=== PATIENT | female | born 1980 | race Caucasian/White ===

== ENCOUNTER → 2017-09-10 | Outpatient (CLI) | payer BC ==
--- NOTE | 2017-09-10 19:08 | Diagnostic Imaging Report ---
PROCEDURE: CT sinuses without contrast TECHNIQUE: Multiple contiguous axial images were obtained through the sinuses without the use of intravenous contrast. Coronal and sagittal reformations were then performed. INDICATION: Chronic sinusitis. FINDINGS: There is mucosal thickening seen in the posterior right ethmoidal air cells. The rest of the ethmoidal air cells appears clear. The ostiomeatal complexes are patent. There is, however, minimal mucosal thickening posterior to the ostiomeatal complex on the left side along the upper medial maxillary sinus wall. The right maxillary sinus is clear. The frontal sinuses are clear. The sphenoidal sinuses are also clear. The mastoid air cells and middle ear cavities are clear. There is nasal septal deviation to the right side. There is minimal mucosal thickening along the inferior turbinates. IMPRESSION: There is mild mucosal thickening along the posterior right ethmoidal air cells and upper medial wall of the left maxillary sinus. Dictated by: Dictated on workstation # [id number]
== END ==
LOC: RAD 09:09
PROVIDERS: ATTEND Otolaryngology Otolaryngology/Facial Plastic Surgery
DX: J32.9 Chronic sinusitis, unspecified (principal)
CPT/HCPCS: 70486

== ENCOUNTER → 2018-04-03 | Outpatient (CLI) | payer OTHER ==
[2018-04-03 08:52] LABS: HEMOGLOBIN 13.9 G/DL (11.5-16.0); RED BLOOD COUNT 4.97 10^6/uL (4.35-5.85); RED CELL DISTRIBUTION WIDTH 14.5 % (10.0-14.5); WHITE BLOOD COUNT 7.6 10^3/uL (4.3-11.0)
[2018-04-03 09:07] LABS: ALANINE AMINOTRANSFERASE 17 U/L (0-55); ALBUMIN 4.1 GM/DL (3.2-4.5); ALKALINE PHOSPHATASE 74 U/L (40-136); BILIRUBIN,TOTAL 0.6 MG/DL (0.1-1.0); BUN/CREATININE RATIO 15; CALCIUM 9.4 MG/DL (8.5-10.1); CARBON DIOXIDE 31 MMOL/L (21-32); CHLORIDE 105 MMOL/L (98-107); CHOLESTEROL 148 MG/DL (< 200); CREATININE SERUM 0.78 MG/DL (0.60-1.30); GFR ESTIMATED > 60; GLUCOSE 105 MG/DL (70-105); HDL CHOLESTEROL 40 MG/DL (40-60); POTASSIUM 2.9 MMOL/L (3.6-5.0); SODIUM 142 MMOL/L (135-145); TOTAL PROTEIN 7.3 GM/DL (6.4-8.2); TRIGLYCERIDES 72 MG/DL (<150); VLDL CHOLESTEROL 14 MG/DL (5-40)
[2018-04-03 09:16] LABS: BILIRUBIN,URINE NEGATIVE (NEGATIVE); CLARITY,URINE CLEAR; COLOR,URINE YELLOW; GLUCOSE, URINE (UA) NEGATIVE (NEGATIVE); KETONES,URINE NEGATIVE (NEGATIVE); LEUKOCYTE ESTERASE ,URINE NEGATIVE (NEGATIVE); NITRITE,URINE NEGATIVE (NEGATIVE); PH,URINE 6 (5-9); PROTEIN,URINE 1+ (NEGATIVE); UROBILINOGEN,URINE NORMAL (NORMAL)
[2018-04-03 09:26] LABS: BACTERIA,URINE NEGATIVE /HPF
== END ==
LOC: LAB 08:19
PROVIDERS: ATTEND Family Medicine
DX: Z00.00 Encounter for general adult medical examination without abnormal findings (principal)
CPT/HCPCS: 36415; 80053; 80061; 81000; 84443; 85027

== ENCOUNTER 2018-10-28 14:26 | Outpatient (CLI) | payer OTHER ==
[~2018-10-28] VITALS: Ht 165.1 cm; Wt 103.9 kg
[2018-10-28] MEDS ORDERED: CETI10TA17 PO (14:48)
[2018-10-28] MEDS ORDERED: LOSA100T8 PO (14:48)
[2018-10-28] MEDS ORDERED: FLUT9.9S NS (14:48)
[2018-10-28 14:50] VITALS: BP 146/104
[2018-10-28 15:26] LABS: BASOPHILS % (AUTO) 0 % (0-10); EOSINOPHILS # (AUTO) 0.2 10^3/uL (0.0-0.3); EOSINOPHILS % (AUTO) 2 % (0-10); HEMATOCRIT 44 % (35-52); HEMOGLOBIN 13.8 G/DL (11.5-16.0); LYMPHOCYTES # (AUTO) 2.4 X 10^3 (1.0-4.0); LYMPHOCYTES % (AUTO) 24 % (12-44); MEAN CORPUSCULAR HEMOGLOBIN 28 PG (25-34); MEAN CORPUSCULAR HGB CONC 31 G/DL (32-36); MEAN CORPUSCULAR VOLUME 88 FL (80-99); MEAN PLATELET VOLUME 10.1 FL (7.4-10.4); MONOCYTES # (AUTO) 0.9 X 10^3 (0.0-1.0); MONOCYTES % (AUTO) 9 % (0-12); NEUTROPHILS # (AUTO) 6.6 X 10^3 (1.8-7.8); NEUTROPHILS % (AUTO) 65 % (42-75); PLATELET COUNT 337 10^3/uL (130-400); RED CELL DISTRIBUTION WIDTH 14.2 % (10.0-14.5); WHITE BLOOD COUNT 10.1 10^3/uL (4.3-11.0)
== END 2018-10-28 15:00 | disposition home or self-care (01) ==
LOC: PREOP 14:26
PROVIDERS: ATTEND Obstetrics & Gynecology
DX: Z01.812 Encounter for preprocedural laboratory examination (principal); Z11.2 Encounter for screening for other bacterial diseases; N93.8 Other specified abnormal uterine and vaginal bleeding; R10.2 Pelvic and perineal pain; D64.9 Anemia, unspecified
CPT/HCPCS: 36415; 85025; 86850; 86900; 86901; 87081

== ENCOUNTER 2018-11-05 09:55 | Day surgery (SDC) | payer OTHER ==
[~2018-11-05] VITALS: Ht 165.1 cm; Wt 103.9 kg
[~2018-11-05 09:55] MED LIST: CETI10TA17 PO; FLUT9.9S NS; LOSA100T8 PO
--- OUTSIDE RECORDS SUMMARY | 2018-11-05 10:19 | XMS REPORT ---
Author Author SUDEEP HENNING Organization [employer] Address Unknown Phone Unavailable Care Team Providers Care Family Psychologist Name Role Phone SUDEEP HENNING CP Unavailable Allergies, Adverse Reactions, Alerts Substance Reaction Event Type Levsin Info Not Available Drug Allergy Penicillins Info Not Available Non Drug Allergy Sulfa (sulfonamide Antibiotics) Info Not Available Non Drug Allergy Problems Problem Type Condition Code Onset Dates Condition Status Problem Routine general medical examination at health care facility V70.0 Active Problem Cough 786.2 Active Problem Acute pharyngitis 462 Active Problem Pain in soft tissues of limb 729.5 Active Problem Diarrhea 787.91 Active Problem Essential hypertension, benign 401.1 Active Problem Unspecified essential hypertension 401.9 Active Problem Plantar fascial fibromatosis 728.71 Active Problem Nausea alone 787.02 Active Problem Ingrowing nail 703.0 Active Assessment Dental examination Z01.20 Active Problem Elevated blood pressure reading without diagnosis of hypertension 796.2 Active Problem Allergic rhinitis due to pollen 477.0 Active Medications Medication Code System Code Instructions Start Date End Date Status Dosage Nasacort Allergy 24HR [facility] [address] not defined Lisinopril [facility] [address]-67 20 mg Jul 03, 2014 take 1 tablet by Oral route 1 time per day Take in am Maria Elena ND 0 not defined Clindamycin HCl [facility] [address]-44 150 MG Orally every 6 hrs June 03, 2016 June 08, 2016 1 capsule Procedures Procedure Coding System Code Date INTRAORL-PERIAPICAL 1 FILM 55177 CPT-4 D0220 June 03, 2016 LTD ORAL EVALUATION - PROBLEM FOCUS CPT-4 D0140 June 03, 2016 Vital Signs Date/Time: June 03, 2016 Blood Pressure Diastolic 109 mmHg Blood Pressure Systolic 162 mmHg Height 65 in Results No Known Results Summary Purpose eClinicalWorks Submission
--- OUTSIDE RECORDS SUMMARY | 2018-11-05 10:19 | XMS REPORT | Continuity of Care Document ---
Author Author [facility] Address Unknown Phone Unavailable Allergies Active Description Code Type Severity Reaction Onset Reported/Identified Relationship to Patient Clinical Status Yes Levsin Drug Allergy N/A N/A 04/27/2014 Yes Penicillins Drug Allergy N/A N/A 04/27/2014 Yes Sulfa (Sulfonamide Antibiotics) Drug Allergy N/A N/A 04/27/2014 Yes hyoscyamine [id number] Drug Allergy Mild RASH 10/28/2018 Yes Penicillins [id number] Drug Allergy Mild RASH 10/28/2018 Yes Sulfa (Sulfonamide Antibiotics) [id number] Drug Allergy Mild RASH 2017 Medications There is no data. Problems Date Dx Coded Attending Type Code Diagnosis Diagnosed By 04/27/2014 DONNA NICOLE DO 796.2 ELEVATED BLOOD PRESSURE READING WITHOUT DIAGNOSIS OF HYPERTENSION 04/27/2014 GUILLERMINA TURCIOS APRN R 796.2 ELEVATED BLOOD PRESSURE READING WITHOUT DIAGNOSIS OF HYPERTENSION 04/27/2014 GUILLERMINA TURCIOS APRN R 796.2 ELEVATED BLOOD PRESSURE READING WITHOUT DIAGNOSIS OF HYPERTENSION 04/27/2014 DONNA NICOLE DO 796.2 ELEVATED BLOOD PRESSURE READING WITHOUT DIAGNOSIS OF HYPERTENSION 04/27/2014 MOHSEN HANSON APRN R 796.2 ELEVATED BLOOD PRESSURE READING WITHOUT DIAGNOSIS OF HYPERTENSION 04/27/2014 SATHISH HUMMEL APRN L 796.2 ELEVATED BLOOD PRESSURE READING WITHOUT DIAGNOSIS OF HYPERTENSION 04/27/2014 SATHISH HUMMEL APRN L 796.2 ELEVATED BLOOD PRESSURE READING WITHOUT DIAGNOSIS OF HYPERTENSION 04/27/2014 DONNA NICOLE DO K 796.2 ELEVATED BLOOD PRESSURE READING WITHOUT DIAGNOSIS OF HYPERTENSION 04/27/2014 RYLEE EPSTEIN APRN S 796.2 ELEVATED BLOOD PRESSURE READING WITHOUT DIAGNOSIS OF HYPERTENSION 04/27/2014 MOR WAYNE APRN 796.2 ELEVATED BLOOD PRESSURE READING WITHOUT DIAGNOSIS OF HYPERTENSION 04/27/2014 GUILLERMINA TURCIOS APRN R 796.2 ELEVATED BLOOD PRESSURE READING WITHOUT DIAGNOSIS OF HYPERTENSION 05/11/2014 TAM FIG CAPRIFIER, GUILLERMINA R 401.9 UNSPECIFIED ESSENTIAL HYPERTENSION 05/11/2014 TAM HERNADEZN, GUILLERMINA R 401.9 UNSPECIFIED ESSENTIAL HYPERTENSION 05/11/2014 NICOLE DO, DONNA K 401.9 UNSPECIFIED ESSENTIAL HYPERTENSION 05/11/2014 MARGIE FIG CAPRIFIER, MOHSEN R 401.9 UNSPECIFIED ESSENTIAL HYPERTENSION 05/11/2014 MADL FIG CAPRIFIER, SATHISH L 401.9 UNSPECIFIED ESSENTIAL HYPERTENSION 05/11/2014 MADL FIG CAPRIFIER, SATHISH L 401.9 UNSPECIFIED ESSENTIAL HYPERTENSION 05/11/2014 NICOLE DO, DONNA K 401.9 UNSPECIFIED ESSENTIAL HYPERTENSION 05/11/2014 RYLEE EPSTEIN APRN S 401.9 UNSPECIFIED ESSENTIAL HYPERTENSION 05/11/2014 MOR WAYNE APRN 401.9 UNSPECIFIED ESSENTIAL HYPERTENSION 05/11/2014 TAM HARE, GUILLERMINA R 401.9 UNSPECIFIED ESSENTIAL HYPERTENSION 05/19/2014 NICOLE DO, DONNA K V70.0 EXAM - ROUTINE H&P 05/19/2014 MARGIE HARE, MOHSEN R V70.0 EXAM - ROUTINE H&P 05/19/2014 SHAHEED FIG CAPRIFIER, SATHISH L V70.0 EXAM - ROUTINE H&P 05/19/2014 SHAHEED HARE, SAHTISH L V70.0 EXAM - ROUTINE H&P 05/19/2014 NICOLE DO, DONNA K V70.0 EXAM - ROUTINE H&P 05/19/2014 APNDA EPSTEIN APRNA S V70.0 EXAM - ROUTINE H&P 05/19/2014 MOR WAYNE APRN V70.0 EXAM - ROUTINE H&P 05/19/2014 TAM HARE, GUILLERMINA R V70.0 EXAM - ROUTINE H&P 06/14/2014 MARGIE HARE, MOHSEN R 462 ACUTE PHARYNGITIS 06/14/2014 MARGIE HARE, MOHSEN R 786.2 COUGH 06/14/2014 MADL FIG CAPRIFIER, SATHISH L 462 ACUTE PHARYNGITIS 06/14/2014 MADL FIG CAPRIFIER, SATHISH L 786.2 COUGH 06/14/2014 MADL FIG CAPRIFIER, SATHISH L 462 ACUTE PHARYNGITIS 06/14/2014 MADL FIG CAPRIFIER, SATHISH L 786.2 COUGH 06/14/2014 NICOLE DO, DONNA K 462 ACUTE PHARYNGITIS 06/14/2014 NICOLE DO, DONNA K 786.2 COUGH 06/14/2014 EILEEN EPSTEIN APRNNDA S 462 ACUTE PHARYNGITIS 06/14/2014 EILEEN EPSTEIN APRNNDA S 786.2 COUGH 06/14/2014 MOR WAYNE APRN 462 ACUTE PHARYNGITIS 06/14/2014 MOR WAYNE APRN 786.2 COUGH 06/14/2014 FABIO TURCIOS APRNINA R 462 ACUTE PHARYNGITIS 06/14/2014 TAM HARE, GUILLERMINA R 786.2 COUGH 07/03/2014 MADL FIG CAPRIFIER, SATHISH L 401.1 BENIGN ESSENTIAL HYPERTENSION 07/03/2014 MADL FIG CAPRIFIER, SATHISH L 729.5 PAIN IN LIMB 07/03/2014 MADL FIG CAPRIFIER, SATHISH L 401.1 BENIGN ESSENTIAL HYPERTENSION 07/03/2014 MADL FIG CAPRIFIER, SATHISH L 729.5 PAIN IN LIMB 07/03/2014 NICOLE DO, DONNA K 401.1 BENIGN ESSENTIAL HYPERTENSION 07/03/2014 NICOLE DO, DONNA K 729.5 PAIN IN LIMB 07/03/2014 EILEEN EPSTEIN APRNNDA S 401.1 BENIGN ESSENTIAL HYPERTENSION 07/03/2014 PANDA EPSTEIN APRNA S 729.5 PAIN IN LIMB 07/03/2014 MOR WAYNE APRN 401.1 BENIGN ESSENTIAL HYPERTENSION 07/03/2014 MOR WAYNE APRN 729.5 PAIN IN LIMB 07/03/2014 FABIO TURCIOS APRNINA R 401.1 BENIGN ESSENTIAL HYPERTENSION 07/03/2014 FABIO TURCIOS APRNINA R 729.5 PAIN IN LIMB 07/13/2014 NICOLE DO, DONNA K 728.71 PLANTAR FASCIAL FIBROMATOSIS 07/13/2014 EILEEN EPSTEIN APRNNDA S 728.71 PLANTAR FASCIAL FIBROMATOSIS 07/13/2014 MOR WAYNE APRN 728.71 PLANTAR FASCIAL FIBROMATOSIS 07/13/2014 GUILLERMINA TURCIOS APRN R 728.71 PLANTAR FASCIAL FIBROMATOSIS 08/22/2014 RYLEE EPSTEIN APRN S 477.0 ALLERGIC RHINITIS DUE TO POLLEN 08/22/2014 ROSANA FIG CAPRIFIER, MOR T 477.0 ALLERGIC RHINITIS DUE TO POLLEN 08/22/2014 TAM FIG CAPRIFIER, GUILLERMINA R 477.0 ALLERGIC RHINITIS DUE TO POLLEN 10/10/2014 MOR WAYNE APRN T 703.0 INGROWING NAIL 10/10/2014 TAM HERNADEZN, GUILLERMINA R 703.0 INGROWING NAIL 12/06/2014 TAM HERNADEZN, GUILLERMINA R 787.02 NAUSEA ALONE 12/06/2014 TAM HERNADEZN, GUILLERMINA R 787.91 DIARRHEA 09/10/2017 RICARDA HOLDEN, REINA Medina Ot J32.9 CHRONIC SINUSITIS, UNSPECIFIED 10/01/2017 RICARDA HOLDEN, REINA Medina Ot J32.9 CHRONIC SINUSITIS, UNSPECIFIED 04/06/2018 GELLENDER DO, KADEN A Ot Z00.00 ENCNTR FOR GENERAL ADULT MEDICAL EXAM W04/10/2018 GELLENDER DO, KADEN A Ot Z00.00 ENCNTR FOR GENERAL ADULT MEDICAL EXAM W04/10/2018 GELLENDER DO, KADEN A Ot Z00.00 ENCNTR FOR GENERAL ADULT MEDICAL EXAM W04/12/2018 GELLENDER DO, KADEN A Ot E05.10 THYROTXCOSIS W TOXIC SING THYROID NODULE 04/12/2018 GELLENDER DO, KADEN A Ot E05.10 THYROTXCOSIS W TOXIC SING THYROID NODULE 04/16/2018 GELLENDER DO, KADEN A Ot Z00.00 ENCNTR FOR GENERAL ADULT MEDICAL EXAM W04/23/2018 GELLENDER DO, KADEN A Ot E05.10 THYROTXCOSIS W TOXIC SING THYROID NODULE 10/28/2018 JESUS LEVI MD Ot D64.9 ANEMIA, UNSPECIFIED 10/28/2018 JESUS LEVI MD Ot N93.8 OTHER SPECIFIED ABNORMAL UTERINE AND VAG 10/28/2018 JESUS LEVI MD Ot R10.2 PELVIC AND PERINEAL PAIN 10/28/2018 JESUS LEVI MD, Ot Z01.812 ENCOUNTER FOR PREPROCEDURAL LABORATORY E 10/28/2018 JESUS LEVI MD, Ot Z11.2 ENCOUNTER FOR SCREENING FOR OTHER BACTER 10/29/2018 JESUS LEVI MD, Ot D64.9 ANEMIA, UNSPECIFIED 10/29/2018 JESUS LEVI MD, Ot N93.8 OTHER SPECIFIED ABNORMAL UTERINE AND VAG 10/29/2018 JESUS LEVI MD, Ot R10.2 PELVIC AND PERINEAL PAIN 10/29/2018 JESUS LEVI MD, Ot Z01.812 ENCOUNTER FOR PREPROCEDURAL LABORATORY E 10/29/2018 JESUS LEVI MD, Ot Z11.2 ENCOUNTER FOR SCREENING FOR OTHER BACTER Procedures Code Description [place] [address] ROUTINE VENIPUNCTURE 05/19/2014 25769 CBC 05/19/2014 3661023 GFR CALC (RESULT ONLY) 05/19/2014 18203 CMP 05/19/2014 66930 LIPID PANEL 05/19/2014 34672 TSH 05/19/2014 00269 T4 FREE 05/23/2014 03282 T3 TOTAL 05/23/2014 2000F BLOOD PRESSURE CHECK 05/25/2014 54808 OXIMETRY 06/14/2014 09000 STREP A (IN-HOUSE) 06/14/2014 31064 XRAY FOOT LEFT 2 VIEWS 07/04/2014 ORTHOPEDI SHAWANDA JIN 07/04/2014 41841 LIPID PANEL 07/07/2014 42101 ROUTINE VENIPUNCTURE 07/07/2014 47388 REMOVAL OF NAIL BED 10/10/2014 Results Test Result Range Complete urinalysis with reflex to culture - 04/03/18 08:40 Urine color determination YELLOW NRG Urine clarity determination CLEAR NRG Urine pH measurement by test strip 6 5-9 Specific gravity of urine by test strip 1.020 1.016- 1.022 Urine protein assay by test strip, semi-quantitative 1+ NEGATIVE Urine glucose detection by automated test strip NEGATIVE NEGATIVE Erythrocytes detection in urine sediment by light microscopy NEGATIVE NEGATIVE Urine ketones detection by automated test strip NEGATIVE NEGATIVE Urine nitrite detection by test strip NEGATIVE NEGATIVE Urine total bilirubin detection by test strip NEGATIVE NEGATIVE Urine urobilinogen measurement by automated test strip (mass/volume) NORMAL NORMAL Urine leukocyte esterase detection by dipstick NEGATIVE NEGATIVE Automated urine sediment erythrocyte count by microscopy (number/high power field) NONE NRG Automated urine sediment leukocyte count by microscopy (number/high power field ) NONE NRG Bacteria detection in urine sediment by light microscopy NEGATIVE NRG Squamous epithelial cells detection in urine sediment by light microscopy 2-5 NRG Crystals detection in urine sediment by light microscopy NONE NRG Casts detection in urine sediment by light microscopy NONE NRG Mucus detection in urine sediment by light microscopy NEGATIVE NRG Complete urinalysis with reflex to culture NO NRG Automated blood complete blood count (hemogram) panel - 04/03/18 08:45 Blood leukocytes automated count (number/volume) 7.6 10*3/uL 4.3-11.0 Blood erythrocytes automated count (number/volume) 4.97 10*6/uL 4.35-5.85 Venous blood hemoglobin measurement (mass/volume) 13.9 g/dL 11.5-16.0 Blood hematocrit (volume fraction) 43 % 35-52 Automated erythrocyte mean corpuscular volume 86 [foz_us] 80-99 Automated erythrocyte mean corpuscular hemoglobin (mass per erythrocyte) 28 pg 25-34 Automated erythrocyte mean corpuscular hemoglobin concentration measurement ( mass/volume) 33 g/dL 32-36 Automated erythrocyte distribution width ratio 14.5 % 10.0-14.5 Automated blood platelet count (count/volume) 375 10*3/uL 130-400 Automated blood platelet mean volume measurement 10.0 [foz_us] 7.4-10.4 Comprehensive metabolic panel - 04/03/18 08:45 Serum or plasma sodium measurement (moles/volume) 142 mmol/L 135-145 Serum or plasma potassium measurement (moles/volume) 2.9 mmol/L 3.6-5.0 Serum or plasma chloride measurement (moles/volume) 105 mmol/L 98-107 Carbon dioxide 31 mmol/L 21-32 Serum or plasma anion gap determination (moles/volume) 6 mmol/L 5-14 Serum or plasma urea nitrogen measurement (mass/volume) 12 mg/dL 7-18 Serum or plasma creatinine measurement (mass/volume) 0.78 mg/dL 0.60-1.30 Serum or plasma urea nitrogen/creatinine mass ratio 15 NRG Serum or plasma creatinine measurement with calculation of estimated glomerular filtration rate > NRG Serum or plasma glucose measurement (mass/volume) 105 mg/dL 70-105 Serum or plasma calcium measurement (mass/volume) 9.4 mg/dL 8.5-10.1 Serum or plasma total bilirubin measurement (mass/volume) 0.6 mg/dL 0.1-1.0 Serum or plasma alkaline phosphatase measurement (enzymatic activity/volume) 74 U/L 40-136 Serum or plasma aspartate aminotransferase measurement (enzymatic activity/ volume) 18 U/L 5-34 Serum or plasma alanine aminotransferase measurement (enzymatic activity/volume ) 17 U/L 0-55 Serum or plasma protein measurement (mass/volume) 7.3 g/dL 6.4-8.2 Serum or plasma albumin measurement (mass/volume) 4.1 g/dL 3.2-4.5 Lipid 1996 panel - 04/03/18 08:45 Serum or plasma triglyceride measurement (mass/volume) 72 mg/dL <150 Serum or plasma cholesterol measurement (mass/volume) 148 mg/dL < 200 Serum or plasma cholesterol in HDL measurement (mass/volume) 40 mg/ dL 40-60 Cholesterol in LDL [mass/volume] in serum or plasma by direct assay 96 mg/dL 1-129 Serum or plasma cholesterol in VLDL measurement (mass/volume) 14 mg/ dL 5-40 THYROID STIMULATING HORMONE - 04/03/18 08:45 THYROID STIMULATING HORMONE 0.09 u[iU]/mL 0.35-4.94 Serum or plasma thyrotropin measurement by detection limit <=0.05 miu/l (units/ volume) - 04/10/18 08:45 Serum or plasma thyrotropin measurement by detection limit <=0.05 miu/l (units/ volume) 0.36 u[iU]/mL 0.35-4.94 Complete blood count (CBC) with automated white blood cell (WBC) differential - 10/28/18 15:00 Blood leukocytes automated count (number/volume) 10.1 10*3/uL 4.3-11.0 Blood erythrocytes automated count (number/volume) 5.00 10*6/uL 4.35-5.85 Venous blood hemoglobin measurement (mass/volume) 13.8 g/dL 11.5-16.0 Blood hematocrit (volume fraction) 44 % 35-52 Automated erythrocyte mean corpuscular volume 88 [foz_us] 80-99 Automated erythrocyte mean corpuscular hemoglobin (mass per erythrocyte) 28 pg 25-34 Automated erythrocyte mean corpuscular hemoglobin concentration measurement ( mass/volume) 31 g/dL 32-36 Automated erythrocyte distribution width ratio 14.2 % 10.0-14.5 Automated blood platelet count (count/volume) 337 10*3/uL 130-400 Automated blood platelet mean volume measurement 10.1 [foz_us] 7.4-10.4 Automated blood neutrophils/100 leukocytes 65 % 42-75 Automated blood lymphocytes/100 leukocytes 24 % 12-44 Blood monocytes/100 leukocytes 9 % 0-12 Automated blood eosinophils/100 leukocytes 2 % 0-10 Automated blood basophils/100 leukocytes 0 % 0-10 Blood neutrophils automated count (number/volume) 6.6 10*3 1.8-7.8 Blood lymphocytes automated count (number/volume) 2.4 10*3 1.0-4.0 Blood monocytes automated count (number/volume) 0.9 10*3 0.0-1.0 Automated eosinophil count 0.2 10*3/uL 0.0-0.3 Automated blood basophil count (count/volume) 0.0 10*3/uL 0.0-0.1 Blood type T Indirect antibody screen panel - 10/28/18 15:00 ABO+Rh group OP NRG Blood group antibody screen NEGATIVE NRG Methicillin resistant Staphylococcus aureus (MRSA) screening culture - 15:00 Methicillin resistant Staphylococcus aureus (MRSA) screening culture NEG NRG Encounters ACCT No. Visit Date/Time Discharge Status Pt. Type Provider Facility Loc./Unit Complaint [id number] 12/06/2014 10:44:00 12/06/2014 23:59:59 CLS Outpatient GUILLERMINA TURCIOS APRN [id number] 10/10/2014 15:30:00 10/10/2014 23:59:59 CLS Outpatient MOR WAYNE APRN [id number] 08/22/2014 09:30:00 08/22/2014 23:59:59 CLS Outpatient RYLEE EPSTEIN APRN [id number] 07/13/2014 14:46:00 07/13/2014 23:59:59 CLS Outpatient DONNA NICOLE DO [id number] 07/07/2014 10:42:00 07/07/2014 23:59:59 CLS Outpatient SATHISH HUMMEL APRN [id number] 07/03/2014 14:57:00 07/03/2014 23:59:59 CLS Outpatient SATHISH HUMMEL APRN [id number] 06/14/2014 15:00:00 06/14/2014 23:59:59 CLS Outpatient MOHSEN HANSON APRN [id number] 05/25/2014 16:04:00 05/25/2014 23:59:59 CLS Outpatient DONNA NICOLE DO [id number] 05/19/2014 09:32:00 05/19/2014 23:59:59 CLS Outpatient TAM HAREGUILLERMINA [id number] 05/11/2014 14:09:00 05/11/2014 23:59:59 CLS Outpatient TAM HARE GUILLERMINA Singer [id number] 04/27/2014 13:49:00 04/27/2014 23:59:59 CLS Outpatient DONNA NICOLE DO Eliceo [id number] 08/21/2017 23:17:02 08/21/2017 23:59:59 CLS Outpatient [id number] 10/28/2018 14:26:00 10/28/2018 15:00:00 DIS Outpatient JESUS LEVI MD [facility] PREOP UTERINE MASS, DUB [id number] 04/10/2018 08:30:00 04/10/2018 23:59:59 CLS Outpatient KADEN ALLISON DO [facility] LAB HYOUL NODULE [id number] 04/03/2018 08:19:00 04/03/2018 23:59:59 CLS Outpatient KADEN ALLISON DO [facility] LAB WELLNESS PHYSICAL [id number] 09/10/2017 09:09:00 09/10/2017 23:59:59 CLS Outpatient RICARDA HOLDEN, REINA Medina [facility] RAD CHRONIC SINUSITIS [id number] 11/05/2018 12:00:00 PEN Preadmit JESUS LEVI MD [facility] SDC UTERINE MASS,DUB
--- OUTSIDE RECORDS SUMMARY | 2018-11-05 10:19 | XMS REPORT ---
Author Author MARIA C SMITH [employer] Address Unknown Phone Unavailable Care Team Providers [facility] Name Role Phone MARIA C SMITH CP Unavailable Allergies, Adverse Reactions, Alerts Substance [...] Problem Ingrowing nail 703.0 Active Assessment Dental caries K02.9 Active Problem Elevated blood pressure reading without diagnosis of hypertension 796.2 Active Problem Allergic rhinitis due to pollen 477.0 Active Medications Medication Code System Code Instructions Start Date End Date Status Dosage Lisinopril [facility] [address]-92 20 mg Jul 03, 2014 take 1 tablet by Oral route 1 time per day Take in [place] [address] not defined Maria Elena NDC 0 not defined Procedures Procedure Coding System Code Date SURG REMOVAL ERUPTED TOOTH CPT-4 D7210 June 24, 2016 Vital Signs Date/Time: June 24, 2016 Blood Pressure Diastolic 99 mmHg Blood Pressure Systolic 144 mmHg Height 65 in Results No Known Results Summary Purpose eClinicalWorks Submission
[2018-11-05] MEDS: LACTATED RINGERS 1,000 ML IV PRN ×2 (11:00→13:20)
[2018-11-05] MEDS ORDERED: ceFAZolin INJECTION 1,000 MG in NS (IVPB) 50 ML IV ONE (11:30)
[2018-11-05 11:34] VITALS: BP 158/107
[2018-11-05] MEDS ORDERED: ESTRADIOL VAGINAL CREAM 42.5 GM (ESTRACE) VG ONE (11:49)
[2018-11-05] MEDS ORDERED: BUP/EPI 0.5% 1:200,000 (SENSORCAINE) 30 ML VIAL ONE (11:49)
[2018-11-05] MEDS ORDERED: DEXAMETHASONE 10 MG/ML (DECADRON) 1 ML VIAL ONE (12:48)
[2018-11-05] MEDS ORDERED: MIDAZOLAM 2 MG/2 ML (VERSED) VIAL ONE (12:48)
[2018-11-05] MEDS ORDERED: proPOfol 200 MG/20 ML (DIPRIVAN) VIAL IV ONE (12:48)
[2018-11-05] MEDS ORDERED: LIDOCAINE PF 2% 5 ML (XYLOCAINE) VIAL ONE (12:48)
[2018-11-05] MEDS ORDERED: ONDANSETRON 4 MG/2 ML (SDV) Z0FRAN ONE (12:48)
[2018-11-05] MEDS ORDERED: ROCURONIUM 10 MG/ML 5 ML SYRINGE IV ONE ×2 (12:48→13:51)
[2018-11-05] MEDS ORDERED: fentaNYL INJECTION 100 MCG/2 ML AMP ONE ×3 (12:49→14:39)
--- NOTE | 2018-11-05 12:52 | Progress Note-Pre Operative ---
Pre-Operative Progress Note H&P Reviewed The H&P was reviewed, patient examined and no changes noted. Date Seen by Provider: Nov 05, 2018 Time Seen by Provider: 12:52 Date H&P Reviewed: Nov 05, 2018 Time H&P Reviewed: 12:52 Pre-Operative Diagnosis: HERSON/menorrhagia/uterine prolapse/stress urinary incontinence/CPP JESUS LEVI MD Nov 05, 2018 12:52
--- NOTE | 2018-11-05 12:53 | Progress Note-Post Operative ---
Post-Operative Progess Note Surgeon (s)/Computer Game Designer (s) Surgeon JESUS LEVI MD Computer Game Designer: Karma Gomez Pre-Operative Diagnosis HERSON/menorrhagia/uterine prolapse/stress urinary incontinence/CPP Post-Operative Diagnosis Same with pathology pending Procedure & Operative Findings Date of Procedure 11/05/18 Procedure Performed/Findings T LH with bilateral salpingectomies anterior and posterior vaginal repairs as well as Dr. Juares performing a pubovaginal sling and cystoscopy Anesthesia Type GETA Estimated Blood Loss Estimated blood loss (mL): 100CC Specimens/Packing Specimens Removed Uterus and fallopian tubes Packing: kelix in the vagina JESUS LEVI MD Nov 05, 2018 12:53
[2018-11-05] MEDS ORDERED: DOCU-143 PO (12:54)
[2018-11-05] MEDS ORDERED: OXYC1TAB87 PO (12:54)
[2018-11-05] MEDS ORDERED: IBUP-1780 PO (12:54)
--- NOTE | 2018-11-05 12:56 | Discharge Instructions ---
Discharge Instructions Discharge Medications New, Converted or Re-Newed RX: RX on Chart Patient Instructions Patient Instructions: As directed Return to The Hospital For: as directed Activity & Diet Discharge Diet: No Restrictions Activity as Tolerated: No Orders-Post D/C & Referrals Follow Up Appt: Return to clinic with me on Thursday, November 08, 2018 for staple removal Call to make follow up appt. for patient in 4 weeks. Activity: Rest for 24 hours, than as tolerated. Wound Care: May remove Band-Aid tomorrow. Replace as desired. Keep incisions clean and dry. Wash daily with soap and water. Please call in RX to patient pharmacy. Diet: As tolerated-Clear Liquids only if nauseated. Tomorrow, may shower or tub bathe as desired. No driving for 24 hours, no alcoholic beverages for 24 hours, and nothing per vagina (no tampons, douching, or intercourse) for 8 weeks. Patient to return to the clinic as soon as possible for: Temperature greater than 101F, Severe Pain, Foul discharge from incision or vagina, Excessive Bleeding (more than a period). JESUS LEVI MD Nov 05, 2018 12:56
[2018-11-05] MEDS ORDERED: NEOSTIGMINE 1 MG/ML 5 ML SYRINGE ONE (14:35)
[2018-11-05] MEDS ORDERED: GLYCOPYRROLATE 0.2 MG/ML (ROBINUL) 2 ML VIAL ONE (14:35)
[2018-11-05] MEDS ORDERED: SEVOFLURANE (ULTANE) 15 ML INHAL SOLN ONE (14:57)
[2018-11-05] MEDS ORDERED: morphine INJ 10 MG/ML 1ML (SYR OR VIAL) ONE (15:14)
[2018-11-05] MEDS ORDERED: ONDANSETRON 4 MG/2 ML (SDV) Z0FRAN IVP PRN ×2 (15:15→16:45)
[2018-11-05] MEDS ORDERED: morphine INJ 10 MG/ML 1ML (SYR OR VIAL) IVP ONE (15:15)
--- NOTE | 2018-11-05 15:25 | Anesthesia-General Post-Op ---
General Patient Condition Mental Status/LOC: Same as Preop Cardiovascular: Satisfactory Nausea/Vomiting: Absent Respiratory: Satisfactory Pain: Controlled Complications: Absent Post Op Complications Complications None Follow Up Care/Instructions Patient Instructions None needed. Anesthesia/Patient Condition Patient Condition Patient is doing well, no complaints, stable vital signs, no apparent adverse anesthesia problems. EZRA HINTON DO Nov 05, 2018 15:25
[2018-11-05] MEDS ORDERED: HYDROmorphone 2 MG/ML VIAL (DILAUDID) ONE (15:31)
[2018-11-05] MEDS: HYDROmorphone 2 MG/ML VIAL (DILAUDID) IV ONE (15:35)
[2018-11-05] MEDS ORDERED: PROMETHAZINE INJ 25 MG/ML (PHENERGAN) AMP IM PRN (16:45)
[2018-11-05] MEDS ORDERED: BENZOCAINE/MENTHOL (DERMOPLAST) 56 ML CAN TP PRN (16:45)
[2018-11-05 16:50] VITALS: BP 190/127
[2018-11-05] MEDS ORDERED: PROMETHAZINE INJ 25 MG/ML (PHENERGAN) AMP ONE (17:13)
[2018-11-05] MEDS ORDERED: KETOROLAC 30 MG/ML VIAL ONE (17:13)
[2018-11-05] MEDS ORDERED: MEPERIDINE (DEMEROL) INJ 100 MG/ML ONE (17:13)
[2018-11-05] MEDS ORDERED: D5 LR IV SOLUTION 1,000 ML IV ONE (17:13)
[2018-11-05] MEDS: D5 LR IV SOLUTION 1,000 ML IV SCH (17:20)
[2018-11-05] MEDS: MEPERIDINE (DEMEROL) INJ 100 MG/ML IM PRN ×2 (17:21→18:13)
[2018-11-05] MEDS: KETOROLAC 30 MG/ML VIAL IVP SCH ×2 (17:21→23:09)
[2018-11-05 18:18] VITALS: BP 153/95
[2018-11-05] MEDS ORDERED: ALPRAZolam 1 MG (XANAX) TAB PO ONE (18:30)
[2018-11-05] MEDS ORDERED: ALPRAZolam 0.5 MG (XANAX) TAB PO PRN (18:45)
[2018-11-05] MEDS ORDERED: PATIENT MAY USE OWN MED,SINGLE MED PO SCH (19:00)
[2018-11-05 20:00] VITALS: BP 125/85
[2018-11-05] MEDS: oxyCODONE/APAP 5/325MG (PERCOCET 5) TABLET PO PRN (21:15)
[2018-11-05] MEDS ORDERED: LOSARTAN 100 MG (COZAAR) TABLET PO SCH ×2 (22:00)
[2018-11-05 23:10] VITALS: BP 134/86
--- NOTE | 2018-11-06 00:46 | OPERATIVE REPORT ---
DATE OF SERVICE: 11/05/2018 PREOPERATIVE DIAGNOSES: Mixed urinary incontinence with overactive bladder and ISD. POSTOPERATIVE DIAGNOSES: Mixed urinary incontinence with overactive bladder and ISD. OPERATION PERFORMED: Pubovaginal sling and cystoscopy. SURGEON: Gavin Saini MD ADA ACCOMMODATION CONSULTANT: Shay Lazo MD ANESTHESIA: General. COMPLICATIONS: None. DESCRIPTION OF PROCEDURE: After Dr. Lazo performed the first part of his surgery that he will dictate, catheter was inserted draining clear urine. The Solyx device was passed on both sides using the described technique. The sling was sitting nicely under the mid urethra with no tension, no twist, passage of a hemostat easily between it and the underlying tissue. Catheter was removed and cystoscopy was performed to confirm the integrity of the bladder, ureteral orifice, urethra and no foreign body and presence of the sling under the mid urethra. I left the bladder at least half full to perform manual Valsalva maneuver after removing the scope and it was negative. I reinserted a Javed catheter draining clear fluid. Estimated blood loss for my part negligible and Dr. Lazo's procedure is the rest of his surgery that he will dictate. Job ID: [id number] DocumentID: [id number] Dictated Date: 11/05/2018 14:41:20 Senior Premium Auditor Date: 11/06/2018 00:45:43 Dictated By: GAVIN SAINI MD
[2018-11-06] MEDS: D5 LR IV SOLUTION 1,000 ML IV SCH (01:20)
--- NOTE | 2018-11-06 01:25 | OPERATIVE REPORT ---
DATE OF SERVICE: 11/05/2018 PREOPERATIVE DIAGNOSES: Vaginal prolapse, dysfunctional uterine bleeding, menorrhagia, stress urinary incontinence and chronic pelvic pain. POSTOPERATIVE DIAGNOSES: Vaginal prolapse, dysfunctional uterine bleeding, menorrhagia, stress urinary incontinence and chronic pelvic pain. OPERATIVE PROCEDURE: Total laparoscopic hysterectomy with bilateral salpingectomy as well as anterior, posterior vaginal repairs with Dr. Dominguez performing a pubovaginal sling and cystoscopy. OPERATIVE DESCRIPTION: With the patient in the supine position under satisfactory general anesthesia, she was prepped and draped in the usual fashion for abdominal and vaginal surgery with plans for robotic assistance. Weighted speculum placed in the posterior fornix of the vagina. The cervix was grasped with a single tooth tenaculum. The uterus was sounded to 9 cm with uterine sound. The cervix was then serially dilated with Trell dilators and then a Jessica II manipulator was placed using a 6 mm x 8 cm uterine probe and a 30 mm colpotomy ring. Sutures of #1 Vicryl placed at 3 and 9 o'clock position of the cervix to affix it to the manipulator. Javed catheter was placed in the urinary bladder. The patient brought in low dorsal lithotomy position. A 12 mm incision made superior to the umbilicus. An attempt was made to place a Veress needle into the abdominal cavity, at that point it was unsuccessful. A stab wound was made at the inferior margin of umbilicus. An attempt was made there, which was unsuccessful and then finally a stab wound was made at Kaba's point and the Veress needle was placed at that site and correct placement confirmed with water drop test and the abdomen insufflated with 2.4 liters of carbon dioxide. The attempt was made to place a 12 mm port at the supraumbilical 12 mm incision that was initially unsuccessful, so a 5 mm port was placed through an incision of that size in the left upper quadrant and then under direct vision, a 12 mm port was placed without difficulty. An 8 mm ports were placed through incisions of those sizes 9 cm lateral to the umbilicus. All port sites were infiltrated with 0.25% Marcaine with epinephrine prior to incision. The patient was now placed in Trendelenburg. The da Chapito column was advanced on the patient and docked and operative instrument placed in the lateral ports and I retired to the da Chapito console. The console using a vessel sealer on the right and a bipolar fenestrated grasper on the left, the pelvis was first examined. Both ovaries were normal. Both fallopian tubes showed evidence of remote tubal sterilization. There was some endometriosis on the posterior lower uterine segment and then the broad ligaments, more so on the right than on the left. The appendix was identified. It was a normal vermiform appendix. The uterus was quite lobular consistent with some adenomyosis and/or uterine fibroids. Decision was made to go ahead with intended procedure being total laparoscopic hysterectomy with bilateral salpingectomies. The right fallopian tube was grasped and elevated. The mesosalpinx was clamped, cauterized and divided using the vessel sealer that was continued to the utero-ovarian pedicle on the right, which was then clamped, cauterized and divided itself along with the round ligament, the broad ligaments and eventually the cardinal ligament. Same procedure performed on the left, allowing for removal of both fallopian tubes with the uterus eventually. The right ureter was seen easily to peristalse. The left ureter was seen with some difficulty. With the adnexa freed, the anterior lower uterine segment peritoneum was exposed using a bipolar fenestrated grasper on the left and a monopolar shear now. On the right, the bladder peritoneum was divided. The bladder was carefully dissected off the lower uterine segment and then colpotomy incision was made at 12 o'clock position onto the colpotomy ring. That incision was extended circumferentially until the entire colpotomy ring was exposed which allowed for the removal of the uterus with the tubes still attached through the vagina. The vaginal cuff was closed with two sutures of V-Loc barbed suture starting first from the right angle and continued to the midpoint and from the left angle to the midpoint with the last several stitches on each side. The bladder peritoneum was brought back on to the vaginal cuff with the initial stitch on each side. The uterine vessel pedicles were secured as well. Hemostasis was complete. Blood loss at this point was quite minimal. With the procedure complete, the operative instruments removed under direct vision. The da Chapito column was undocked and removed from the patient. The patient brought out of Trendelenburg. The operative ports removed under direct vision. No bleeding was noted at those sites. The abdomen was evacuated of insufflating gas in the process of removing the ports. The skin incisions were stapled after first closing the fascia at the supraumbilical incision with [id number] suture of 2-0 Vicryl. The patient now repositioned in the dorsal lithotomy position for the anterior and posterior vaginal repairs. Weighted speculum placed in the posterior fornix of vagina. The anterior vaginal wall was grasped with two Ed clamps. The vaginotomy incision was made in the midline that was continued to approximate a 1.5 cm from the urethral meatus and to almost the apex of the vagina. The bladder wall was carefully dissected off the vagina back to the pubic rami bilaterally and then the bladder wall and endopelvic fascia were plicated with 2-0 Vicryl sutures elevating the bladder and lengthening the urethra. At this point, Dr. Dominguez assumed care of the patient. I remained to assist for his pubovaginal sling and cystoscopy. Upon completion of Dr. Dominguez's portion of the procedure. He did confirm ureteral jets from both ureters confirming the integrity of the ureters. The bladder was intact. The redundant anterior vaginal muscularis mucosa was now removed sharply. Vaginal wall was closed with a running lock suture of 3-0 Vicryl Rapide. Good support was evident and good hemostasis was achieved. Posterior repair was affected by placing Ed clamps on the perineum and the hymenal ring at 5 and 7 o'clock position and inverted triangle of skin was removed from the perineal body and upright triangle from the posterior vaginal floor. The rectovaginal space was entered sharply and dissected bluntly to the apex of the vagina where it was explored for an enterocele there being a small and that enterocele was reduced and plicated with 2-0 Vicryl pursestring sutures and then the rectovaginal space was obliterated with 2-0 Vicryl sutures as well. The perineal body was restored with 2-0 Vicryl sutures and then the posterior vaginal wall. Redundant tissue was removed sharply. Vaginal wall was closed with a running locked suture of 2-0 Vicryl Rapide that closure was continued past the hymenal ring down on the perineal body then back up subcutaneous to the hymenal ring where the suture was tied. The vagina was examined for hemostasis, which was complete. The vaginal apex was completely reapproximated and hemostatic. The vagina was now filled with Estrace vaginal cream and a pack of Kerlix gauze was placed. Javed catheter was left to dependent drainage. Digital rectal exam confirmed no stricture or stenosis of the rectum and no sutures into or through the rectal mucosa. The patient was uneventfully awakened now from her general anesthesia and transferred to recovery in stable condition. Sponge and needle counts were correct. Estimated blood loss was around 100 mL. The patient tolerated the procedure very well. 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
[2018-11-06 03:47] VITALS: BP 124/76
[2018-11-06] MEDS: oxyCODONE/APAP 5/325MG (PERCOCET 5) TABLET PO PRN (03:47)
[2018-11-06] MEDS: KETOROLAC 30 MG/ML VIAL IVP SCH (06:26)
[2018-11-06 07:40] VITALS: BP 135/70
[2018-11-06] MEDS ORDERED: FLU QUADRIvalent (5+ YOA) 2018-2019 (AFLURIA) 0.5 ML IM ONE (08:00)
--- NOTE | 2018-11-06 08:33 | Progress Note-Standard ---
Standard Progress Note Progress Notes/Assess & Plan Date Seen by a Provider: Nov 06, 2018 Time Seen by a Provider: 08:32 Progress/Assessment & Plan This patient is without complaint. She is ambulating, tolerating oral intake well, has good pain control. Patient denies chest pain, denies nausea or vomiting, and denies headache. Patient has not voided yet. Vital Signs 11/06/18 07:40 Temp 98.2 Pulse 69 Resp 16 B/P (MAP) 135/70 (91) Pulse Ox 100 O2 Delivery Room Air Vital signs are stable. Patient is afebrile. The abdomen is benign. Extremities show no clubbing cyanosis. There is no Homans sign. Assessment and plan postoperative day number 1 doing well. Plan is for routine convalescence care with discharge home when patient has demonstrated adequate bladder function. Final Diagnosis Dysfunctional uterine bleeding/chronic pelvic pain/menorrhagia/stress urinary incontinence JESUS LEVI MD Nov 06, 2018 08:33
[2018-11-06] MEDS ORDERED: DOCUSATE SODIUM 100 MG (COLACE) CAP PO SCH (09:00)
--- NOTE | 2018-11-06 10:21 | Progress Note-Urology ---
Progress Note-Urology Progress Notes/Assess & Plan Progress/Assessment & Plan DOING WELL. VOIDED ON OWN. STILL SOME PVR BUT LESS THAN 200. DRY, HAPPY. RECHECK PVR NEXT VOIDING AND MANAGE ACCORDINGLY Final Diagnosis URINARY INCONTINENCE GAVIN SAINI MD Nov 06, 2018 10:21
[2018-11-06] MEDS ORDERED: IBUPROFEN 800 MG (MOTRIN) TAB PO SCH (17:00)
== END 2018-11-06 11:20 | disposition home or self-care (01) ==
LOC: SDC 09:55 → WS 16:44 → SDC 11-06 11:20
PROVIDERS: ATTEND Obstetrics & Gynecology
DX: N81.10 Cystocele, unspecified (principal); N39.3 Stress incontinence (female) (male); N83.8 Other noninflammatory disorders of ovary, fallopian tube and broad ligament; N93.8 Other specified abnormal uterine and vaginal bleeding; N92.0 Excessive and frequent menstruation with regular cycle; R10.2 Pelvic and perineal pain; I10 Essential (primary) hypertension; F17.210 Nicotine dependence, cigarettes, uncomplicated; Z79.899 Other long term (current) drug therapy
CPT/HCPCS: 36415; 84703; 86850; 86900; 86901; 88307

== ENCOUNTER 2021-01-23 22:10 | Emergency (ER) | payer OTHER ==
[~2021-01-23] VITALS: Ht 165.1 cm; Wt 124.7 kg
[~2021-01-23 22:10] MED LIST changes: +DOCU-143 PO; +IBUP-1780 PO; +LOSA100T57 PO; -LOSA100T8 PO; +OXYC1TAB87 PO
[2021-01-23 22:13] VITALS: BP 176/106
--- NOTE | 2021-01-23 22:28 | ED Lower Extremity ---
General Chief Complaint: Lower Extremity Stated Complaint: RT FOOT PAIN History of Present Illness Date Seen by Provider: Jan 23, 2021 Time Seen by Provider: 22:20 Initial Comments 40-year-old female presents with injury to her right foot. Patient reports that 3 days ago she dropped a piece of thin plywood on the distal aspect of her right foot. Patient presents today because it is "doubled in size since yesterday" patient has some swelling and bruising of the distal aspect across the middle 3 toes. She is not done anything for it. She is not taking pain medicines. She presents today because the pain is worse and wants to have it further evaluated Allergies and Home Medications Allergies Coded Allergies: Penicillins (Verified Allergy, Mild, RASH, 10/28/18) Sulfa (Sulfonamide Antibiotics) (Verified Allergy, Mild, RASH, 10/28/18) hyoscyamine (Verified Allergy, Mild, RASH, 10/28/18) Home Medications Cetirizine HCl 10 Mg Tablet, 10 MG PO DAILY, (Reported) Docusate Sodium 100 Mg Capsule, 100 MG PO BID Prescribed by: JESUS GARCIA on 11/05/18 1254 Fluticasone Propionate 9.9 Ml [place].susp, 1 SPRAY NS DAILY, (Reported) 1 SPRAY EACH NARE DAILY Ibuprofen 800 Mg Tablet, 800 MG PO Q6H PRN for PAIN Prescribed by: JESUS GARCIA on 11/05/18 1254 Losartan Potassium 100 Mg Tablet, 100 MG PO DAILY, (Reported) Oxycodone HCl/Acetaminophen 1 Each Tablet, 1 EACH PO Q4H PRN for PAIN-MODERATE Prescribed by: JESUS GARCIA on 11/05/18 1254 Patient Home Medication List Home Medication List Reviewed: Yes Review of Systems Constitutional: No chills, No fever Respiratory: no symptoms reported Cardiovascular: no symptoms reported Gastrointestinal: no symptoms reported Genitourinary: no symptoms reported Skin: see HPI Psychiatric/Neurological: No Symptoms Reported Past Lxvwrhm-Oeeqez-Oxowmk Hx Past Med/Social Hx: Reviewed Nursing Past Med/Soc Hx Patient Social History Type Used: Cigarettes Recent Hopitalizations: No Seasonal Allergies Seasonal Allergies: Yes Past Medical History Tubal Ligation Hypertension Reproductive Disorders: Yes (DUB, UTERINE MASS, CPP) Female Reproductive Disorders: Menstrual Problems, Ovarian Cyst 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 1.0oz. [id number]; 38.1 BMI Method: General Appearance: WD/WN, no apparent distress HEENT: PERRL/EOMI Cardiovascular: normal peripheral pulses, regular rate, rhythm Respiratory: lungs clear, normal breath sounds Gastrointestinal: non tender, soft Hips: bilateral hip non-tender Legs: bilateral leg non-tender Knees: bilateral knee non-tender Ankles: bilateral ankle non-tender Feet: right foot limited range of motion, right foot soft tissue tenderness Neurologic/Psychiatric: alert, normal mood/affect, oriented x 3 Skin: ecchymosis (The base of the middle 3 toes right foot) Progress/Results/Core Measures Results/Orders My Orders Orders - KELVIN WHITE DO Foot 3 View Right (01/23/21 22:28) Vital Signs/I&O 01/23/21 22:13 Temp 37.0 Pulse 88 Resp 18 B/P (MAP) 176/106 (129) Pulse Ox 100 O2 Delivery Room Air Progress Progress Note : Time: 22:35 Progress Note X-ray shows no acute fracture or dislocation. Patient with contusion of her right foot. Recommended Tylenol, ibuprofen elevation ice. If symptoms or not improving in 10 days she should follow-up for repeat x-rays with her primary care provider Diagnostic Imaging Diagonstic Imaging: Xray Plain Films/CT/US/NM/MRI: other (foot) Comments no acute fracture or dislocation Reviewed: Reviewed by Me Departure Impression Primary Impression: Contusion of right foot including toes Qualified Codes: S90.31XA - Contusion of right foot, initial encounter; S90.121A - Contusion of right lesser toe(s) without damage to nail, initial encounter Disposition: 01 HOME, SELF-CARE Condition: Stable Departure-Patient Inst. Referrals: KADEN ALLISON DO (PCP/Family) Primary Care Physician Patient Instructions: Contusion (DC), Taking Care of Bruises Add. Discharge Instructions: Elevation of right foot Ice to affected area Tylenol or ibuprofen as needed for pain All discharge instructions reviewed with patient and/or family. Voiced understanding. KELVIN WHITE DO Jan 23, 2021 22:28
--- NOTE | 2021-01-24 05:15 | Diagnostic Imaging Report ---
Indication: Right foot injury 3 views of the right foot show no fracture, dislocation or other acute abnormalities. IMPRESSION: Negative right foot Dictated by: Dictated on workstation # [id number]
== END 2021-01-23 22:46 | disposition home or self-care (01) ==
LOC: EDUNIT# 22:10 → ER FS 22:11
DX: S90.121A Contusion of right lesser toe(s) without damage to nail, initial encounter (principal); I10 Essential (primary) hypertension; Z88.0 Allergy status to penicillin; Z88.2 Allergy status to sulfonamides; Z88.8 Allergy status to other drugs, medicaments and biological substances; W20.8XXA Other cause of strike by thrown, projected or falling object, initial encounter
CPT/HCPCS: 73630

== ENCOUNTER 2022-01-30 14:22 | Emergency (ER) | payer SELFPAY ==
[~2022-01-30] VITALS: Ht 165.1 cm; Wt 115.6 kg
[2022-01-30] MEDS ORDERED: cloNIDine 0.1 MG (CATAPRES) TAB PO ONE (15:00)
[2022-01-30 15:09] LABS: BASOPHILS % (AUTO) 0 % (0-10); EOSINOPHILS # (AUTO) 0.2 10^3/uL (0.0-0.3); EOSINOPHILS % (AUTO) 2 % (0-10); HEMATOCRIT 44 % (35-52); HEMOGLOBIN 13.8 g/dL (11.5-16.0); LYMPHOCYTES # (AUTO) 1.9 10^3/uL (1.0-4.0); LYMPHOCYTES % (AUTO) 18 % (12-44); MEAN CORPUSCULAR HEMOGLOBIN 27 pg (25-34); MEAN CORPUSCULAR HGB CONC 31 g/dL (32-36); MEAN CORPUSCULAR VOLUME 86 fL (80-99); MEAN PLATELET VOLUME 9.5 fL (9.0-12.2); MONOCYTES # (AUTO) 0.8 10^3/uL (0.0-1.0); MONOCYTES % (AUTO) 8 % (0-12); NEUTROPHILS # (AUTO) 7.4 10^3/uL (1.8-7.8); NEUTROPHILS % (AUTO) 71 % (42-75); PLATELET COUNT 388 10^3/uL (130-400); WHITE BLOOD COUNT 10.4 10^3/uL (4.3-11.0)
[2022-01-30 15:13] LABS: ALBUMIN 3.9 GM/DL (3.2-4.5); CHLORIDE 106 MMOL/L (98-107); POTASSIUM 3.7 MMOL/L (3.6-5.0); SODIUM 138 MMOL/L (135-145)
[2022-01-30 15:14] LABS: CALCIUM 9.4 MG/DL (8.5-10.1)
--- NOTE | 2022-01-30 15:14 | ED Cardiac General ---
History of Present Illness General Chief Complaint: Cardiac/General Problems Stated Complaint: HIGH BP 205/122 Nursing Triage Note: PT AMB TO RM 4 WITH COMPLAINT OF HTN. PT WAS AT [facility] FOR PHYSICAL AND BP WAS IN 200s. PT STATES SHE FORGOT TO TAKE MEDS THIS MORNING. Source: patient Exam Limitations: no limitations History of Present Illness Date Seen by Provider: Jan 30, 2022 Time Seen by Provider: 14:47 Initial Comments Patient to the ER by private conveyance with chief complaint that she has significantly elevated blood pressure 205/117. She was at [employer] during a annual physical for her job [employer]. She does not normally check her blood pressure. She is not having any symptoms. No chest pain shortness of air fever cough nausea dysuria. She does not have diabetes or hyperlipidemia. She quit smoking 3 years ago. She has been on losartan 100 mg and hydrochlorothiazide 12-1/[address] Allison for the past 2 years. She says she has been taking the medications routinely she is not out of prescriptions. No headaches weakness numbness tingling facial droop slurring of speech or other worrisome symptoms. No history of heart disease. She has had known hypertension since 2008 Allergies and Home Medications Allergies Coded Allergies: Penicillins (Verified Allergy, Mild, RASH, 10/28/18) Sulfa (Sulfonamide Antibiotics) (Verified Allergy, Mild, RASH, 10/28/18) hyoscyamine (Verified Allergy, Mild, RASH, 10/28/18) Patient Home Medication List Home Medication List Reviewed: Yes Cetirizine HCl (Cetirizine HCl) 10 Mg Tablet, 10 MG PO DAILY, (Reported) Entered as Reported by: DEEP NUR on 10/28/18 1448 Docusate Sodium (Colace) 100 Mg Capsule, 100 MG PO BID Prescribed by: JESUS GARCIA on 11/05/18 1254 Fluticasone Propionate (Flonase Allergy Relief) 9.9 Ml [place].susp, 1 SPRAY NS DAILY, (Reported) Entered as Reported by: DEEP NUR on 10/28/18 1448 Ibuprofen (Ibuprofen) 800 Mg Tablet, 800 MG PO Q6H PRN for PAIN Prescribed by: JESUS GARCIA on 11/05/18 1254 Losartan Potassium (Losartan Potassium) 100 Mg Tablet, 100 MG PO DAILY, (Reported) Entered as Reported by: DEEP NUR on 10/28/18 1448 Oxycodone HCl/Acetaminophen (Percocet 5-325 mg Tablet) 1 Each Tablet, 1 EACH PO Q4H PRN for PAIN-MODERATE Prescribed by: JESUS GARCIA on 11/05/18 1254 Review of Systems Review of Systems Constitutional: No chills, No diaphoresis EENTM: No Blurred Vision, No Double Vision Respiratory: Denies Cough, Denies Orthopnea Cardiovascular: Denies Chest Pain, Denies Lightheadedness Gastrointestinal: Denies Constipated, Denies Diarrhea Genitourinary: Denies Burning, Denies Discharge Musculoskeletal: No back pain, No joint pain Skin: No pruritus, No rash Psychiatric/Neurological: Denies Headache, Denies Numbness, Denies Paresthesia All Other Systems Reviewed Negative Unless Noted: Yes Past Wgxedan-Ztwrkl-Frqvhd Hx Patient Social History Tobacco Use?: No Smoking Status: Former Smoker Use of E-Cig and/or Vaping dev: No Substance use?: No Alcohol Use?: No Pt feels they are or have been: No Immunizations Up To Date Influenza Vaccine Up-to-Date: No; Not Current Seasonal Allergies Seasonal Allergies: Yes Past Medical History Surgeries: Yes (UTERINE ABLATION) Hysterectomy, Tubal Ligation Respiratory: No Cardiac: Yes Hypertension Neurological: No Reproductive Disorders: Yes (DUB, UTERINE MASS, CPP) Female Reproductive Disorders: Menstrual Problems, Ovarian Cyst 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 1.0oz. 103.434285tz; 42.00 BMI Method: General Appearance: No Apparent Distress, WD/WN, Obese HEENT: PERRL/EOMI, Pharynx Normal, Moist Mucous Membranes Neck: Full Range of Motion, Normal Inspection Respiratory: Lungs Clear, Normal Breath Sounds, No Accessory Muscle Use, No Respiratory Distress Cardiovascular: Regular Rate, Rhythm, No Edema, Normal Peripheral Pulses Gastrointestinal: Normal Bowel Sounds, Non Tender, Soft Extremity: Normal Capillary Refill, Normal Inspection, No Pedal Edema Neurologic/Psychiatric: Alert, Oriented x3 Skin: Normal Color, Warm/Dry Progress/Results/Core Measures Results/Orders Lab Results Laboratory Tests Test 01/30/22 14:55 01/30/22 15:15 Range/Units White Blood Count 10.4 4.3-11.0 10^3/uL Red Blood Count 5.16 H 3.80-5.11 10^6/uL Hemoglobin 13.8 11.5-16.0 g/dL Hematocrit 44 35-52 % Mean Corpuscular Volume 86 80-99 fL Mean Corpuscular Hemoglobin 27 25-34 pg Mean Corpuscular Hemoglobin Concent 31 L 32-36 g/dL Red Cell Distribution Width 13.8 10.0-14.5 % Platelet Count 388 130-400 10^3/uL Mean Platelet Volume 9.5 9.0-12.2 fL Immature Granulocyte % (Auto) 1 % Neutrophils (%) (Auto) 71 42-75 % Lymphocytes (%) (Auto) 18 12-44 % Monocytes (%) (Auto) 8 0-12 % Eosinophils (%) (Auto) 2 0-10 % Basophils (%) (Auto) 0 0-10 % Neutrophils # (Auto) 7.4 1.8-7.8 10^3/uL Lymphocytes # (Auto) 1.9 1.0-4.0 10^3/uL Monocytes # (Auto) 0.8 0.0-1.0 10^3/uL Eosinophils # (Auto) 0.2 0.0-0.3 10^3/uL Basophils # (Auto) 0.0 0.0-0.1 10^3/uL Immature Granulocyte # (Auto) 0.1 0.0-0.1 10^3/uL Sodium Level 138 135-145 MMOL/L Potassium Level 3.7 3.6-5.0 MMOL/L Chloride Level 106 98-107 MMOL/L Carbon Dioxide Level 21 21-32 MMOL/L Anion Gap 11 5-14 MMOL/L Blood Urea Nitrogen 13 7-18 MG/DL Creatinine 0.75 0.60-1.30 MG/DL Estimat Glomerular Filtration Rate 101 BUN/Creatinine Ratio 17 Glucose Level 137 H 70-105 MG/DL Calcium Level 9.4 8.5-10.1 MG/DL Corrected Calcium 9.5 8.5-10.1 MG/DL Total Bilirubin 0.4 0.1-1.0 MG/DL Aspartate Amino Transf (AST/SGOT) 20 5-34 U/L Alanine Aminotransferase (ALT/SGPT) 22 0-55 U/L Alkaline Phosphatase 84 40-136 U/L Troponin I < 0.028 <0.028 NG/ML Total Protein 7.2 6.4-8.2 GM/DL Albumin 3.9 3.2-4.5 GM/DL Urine Color YELLOW Urine Clarity SL CLOUDY Urine pH 7.5 5-9 Urine Specific [place] 1.020 1.016-1.022 Urine Protein NEGATIVE NEGATIVE Urine Glucose (UA) NEGATIVE NEGATIVE Urine Ketones NEGATIVE NEGATIVE Urine Nitrite NEGATIVE NEGATIVE Urine Bilirubin NEGATIVE NEGATIVE Urine Urobilinogen 0.2 < = 1.0 MG/DL Urine Leukocyte Esterase NEGATIVE NEGATIVE Urine RBC (Auto) NEGATIVE NEGATIVE Urine RBC NONE /HPF Urine WBC NONE /HPF Urine Squamous Epithelial Cells RARE /HPF Urine Crystals NONE /LPF Urine Amorphous Sediment FEW JENNIFER PHOSPHATE H /LPF Urine Bacteria NEGATIVE /HPF Urine Casts NONE /LPF Urine Mucus NEGATIVE /LPF Urine Culture Indicated NO My Orders Orders - MISSY BAUTISTA Cbc With Automated Diff (01/30/22 15:00) Comprehensive Metabolic Panel (01/30/22 15:00) Troponin I Fawad (01/30/22 15:00) Continuous Ekg Monitoring (01/30/22 15:00) Ekg Tracing (01/30/22 15:00) Clonidine Tablet (Catapres Tablet) (01/30/22 15:00) Ua Culture If Indicated (01/30/22 15:00) Urine Bedside (01/30/22 15:00) Medications Given in ED Current Medications Medications Dose Ordered Sig/Roderick Route Start Time Stop Time Status Last Admin Dose Admin Clonidine HCl 0.1 mg ONCE ONCE PO 01/30/22 15:00 01/30/22 15:04 DC 01/30/22 15:18 0.1 MG Vital Signs/I&O 01/30/22 14:35 Pulse 99 Resp 16 B/P (MAP) 204/117 (146) Pulse Ox 98 O2 Delivery Room Air Blood Pressure Mean: 146 Progress Progress Note : Time: 15:10 Progress Note After a short period of observation the patient's blood pressure is already down to 181/97. Plan to give her a dose of clonidine and see if this would be a good third drug. We will check some labs including kidney function. Initial ECG Impression Date: Jan 30, 2022 Initial ECG Impression Time: 14:43 Initial ECG Rate: 92 Initial ECG Rhythm: Normal Sinus Initial ECG Intervals: Normal Initial ECG Impression: Normal Initial ECG Comparisson: No Previous ECG Available Comment Normal sinus rhythm without clinically relevant ST elevation or depression. Departure Impression Primary Impression: Asymptomatic hypertension Disposition: HOME, SELF-CARE Condition: Stable Departure-Patient Inst. Decision time for Depature: 15:59 Referrals: KADEN ALLISON DO (PCP/Family) Primary Care Physician Patient Instructions: High Blood Pressure (DC) Add. Discharge Instructions: Continue taking your blood pressure medications as prescribed. Add clonidine 0.1 mg twice a day until you see your primary care doctor in the next couple weeks to reevaluate your blood pressure. Return to the ER for chest pain or other worrisome symptoms. All discharge instructions reviewed with patient and/or family. Voiced understanding. Scripts Clonidine HCl (Clonidine HCl) 0.1 Mg Tablet 0.1 MG PO BID for 14 Days, #30 TAB 0 Refills Prov: MISSY BAUTISTA 01/30/22 Work/School Note: Work Release Form Date Seen in the Emergency Department: Jan 30, 2022 Return to Work: Jan 30, 2022 Restrictions: No Restrictions Other Restrictions Listed Below: D/C 3201. Copy Copies To 1: KADEN ALLISON TITUS J Jan 30, 2022 15:14
[2022-01-30 15:15] LABS: GLUCOSE 137 MG/DL (70-105)
[2022-01-30 15:16] LABS: TOTAL PROTEIN 7.2 GM/DL (6.4-8.2)
[2022-01-30 15:17] LABS: BILIRUBIN,TOTAL 0.4 MG/DL (0.1-1.0); CARBON DIOXIDE 21 MMOL/L (21-32)
[2022-01-30 15:19] LABS: ALKALINE PHOSPHATASE 84 U/L (40-136); CREATININE SERUM 0.75 MG/DL (0.60-1.30); GFR ESTIMATED 101
[2022-01-30 15:20] LABS: BUN/CREATININE RATIO 17
[2022-01-30 15:20] LABS: BILIRUBIN,URINE NEGATIVE (NEGATIVE); CLARITY,URINE SL CLOUDY; COLOR,URINE YELLOW; GLUCOSE, URINE (UA) NEGATIVE (NEGATIVE); KETONES,URINE NEGATIVE (NEGATIVE); LEUKOCYTE ESTERASE ,URINE NEGATIVE (NEGATIVE); NITRITE,URINE NEGATIVE (NEGATIVE); PH,URINE 7.5 (5-9); PROTEIN,URINE NEGATIVE (NEGATIVE)
[2022-01-30 15:22] LABS: ALANINE AMINOTRANSFERASE 22 U/L (0-55)
[2022-01-30 15:32] LABS: AMORPHOUS SEDIMENT,UR FEW AMOR PHOSPHATE /LPF; BACTERIA,URINE NEGATIVE /HPF; SQUAMOUS EPITHELIAL CELL,UR RARE /HPF
[2022-01-30] MEDS ORDERED: CLN.1T PO (16:04)
[2022-01-30 16:17] VITALS: BP 170/95
== END 2022-01-30 16:17 | disposition home or self-care (01) ==
LOC: EDUNIT# 14:22 → ER 14:24
DX: I10 Essential (primary) hypertension (principal); E66.9 Obesity, unspecified; Z68.41 Body mass index [BMI] 40.0-44.9, adult; Z87.891 Personal history of nicotine dependence
CPT/HCPCS: 36415; 80053; 81000; 84484; 84703; 85025; 93005

== ENCOUNTER 2023-04-08 10:37 | Outpatient (CLI) | payer BC ==
[~2023-04-08] VITALS: Ht 165.1 cm; Wt 123.2 kg
[~2023-04-08 10:37] MED LIST changes: +CLN.1T PO
[2023-04-08] MEDS ORDERED: TRAM50TA3 PO (14:25)
[2023-04-08] MEDS ORDERED: DICY10CA12 PO (14:25)
[2023-04-08] MEDS ORDERED: METO50TA7 PO (14:25)
[2023-04-08] MEDS ORDERED: LOSA1TAB26 PO (14:25)
[2023-04-08] MEDS ORDERED: OXYB5TAB13 PO (14:25)
== END 2023-04-08 14:28 | disposition home or self-care (01) ==
LOC: PREOP 10:37
PROVIDERS: ATTEND Surgery
DX: Z01.818 Encounter for other preprocedural examination (principal)

== ENCOUNTER → 2023-04-14 | Outpatient (CLI) | payer BC ==
[~2023-04-14] MED LIST changes: +DICY10CA12 PO; +LOSA1TAB26 PO; +METO50TA7 PO; +OXYB5TAB13 PO; +TRAM50TA3 PO
--- NOTE | 2023-04-14 15:41 | Diagnostic Imaging Report ---
PROCEDURE: US PELVIC (NON-OB). TECHNIQUE: Multiple real-time grayscale images were obtained over the pelvis in various projections transabdominally. In addition, limited pelvic Doppler was performed. INDICATION: Pelvic pain. Patient underwent complete hysterectomy in 2018. FINDINGS: The uterus is surgically absent. Right ovary measures 2.5 x 2.0 x 2.6 cm, and the left ovary measures 2.3 x 1.9 x 2.0 cm. Both ovaries demonstrate blood flow. There is no adnexal mass or free fluid identified. IMPRESSION: Status post hysterectomy. No other abnormality is detected. Dictated by: Dictated on workstation # [id number]
== END ==
LOC: RAD 11:34
PROVIDERS: ATTEND Surgery
DX: R10.2 Pelvic and perineal pain (principal); Z90.710 Acquired absence of both cervix and uterus
CPT/HCPCS: 76856

== ENCOUNTER 2023-04-15 13:16 | Day surgery (SDC) | payer BC ==
[~2023-04-15] VITALS: Ht 165 cm; Wt 123.2 kg
[2023-04-15] MEDS ORDERED: LACTATED RINGERS 1,000 ML IV STA (13:18)
[2023-04-15] MEDS ORDERED: LACTATED RINGERS 1,000 ML IV ONE (13:24)
[2023-04-15] MEDS ORDERED: LIDOCAINE JELLY 2% 6 ML SYRINGE MM PRN (13:30)
[2023-04-15 13:35] VITALS: BP 174/96
--- NOTE | 2023-04-15 14:17 | Progress Note-Pre Operative ---
Pre-Operative Progress Note Date of Available H&P: April 15, 2023 Date H&P Reviewed: April 15, 2023 Time H&P Reviewed: 14:00 History & Physical: No changes noted Pre-Operative Diagnosis: rectal bleed FRANCINE KAY MD April 15, 2023 14:17
--- NOTE | 2023-04-15 14:18 | Discharge Inst-Surgical ---
D/C Lap Instructions-ELIZA Follow Up Activity as tolerated High Fiber Diet 25g or more per day Avoid Alcohol, Caffeine, Spicy [place] and Acid foods. Drink 64 fluid oz or more of fluids per day. Symptoms to Report: Fever over 101 degree F, Nausea/Vomiting If any problems/questions: Contact your physician or go to Emergency Room FRANCINE KAY MD April 15, 2023 14:18
[2023-04-15] MEDS ORDERED: ONDANSETRON 4 MG (ZOFRAN) ORAL DISSOLVE TAB PO PRN (14:30)
[2023-04-15] MEDS ORDERED: ONDANSETRON 4 MG/2 ML (SDV) Z0FRAN IVP PRN (14:30)
[2023-04-15] MEDS ORDERED: PROPOFOL INJECTION 50 ML IV ONE ×2 (15:08→15:32)
[2023-04-15] MEDS ORDERED: MIDAZOLAM 2 MG/2 ML (VERSED) VIAL ONE (15:08)
[2023-04-15] MEDS ORDERED: LIDOCAINE JELLY 2% 6 ML SYRINGE ONE (15:16)
[2023-04-15] MEDS ORDERED: KETAMINE 50 MG/5 ML SYRINGE ONE (15:25)
[2023-04-15] MEDS ORDERED: LABETALOL HCL 20 MG/4 ML VIAL ONE (15:36)
--- NOTE | 2023-04-15 15:53 | Anesthesia-General Post-Op ---
MAC Patient Condition Mental Status/LOC: Same as Preop Cardiovascular: Satisfactory Nausea/Vomiting: Absent Respiratory: Satisfactory Pain: Controlled Complications: Absent Post Op Complications Complications None Follow Up Care/Instructions Patient Instructions None needed. Anesthesiology Discharge Order Discharge Order Patient is doing well, no complaints, stable vital signs, no apparent adverse anesthesia problems. No complications reported per nursing. ENRIQUE CABAN CRNA April 15, 2023 15:53
[2023-04-15 16:00] VITALS: BP 167/97
[2023-04-15] MEDS ORDERED: LACTATED RINGERS 1,000 ML IV SCH (16:00)
--- NOTE | 2023-04-15 16:01 | Progress Note-Post Operative ---
Post-Operative Progess Note Surgeon (s)/Telecommunicator Supervisor (s) Surgeon FRANCINE KAY MD Telecommunicator Supervisor: none Pre-Operative Diagnosis rectal bleed Post-Operative Diagnosis post anal fissure, chronic stage 2 ext and int hemorrhoids, mild patchy colitis. Procedure & Operative Findings Date of Procedure 04/15/23 Procedure Performed/Findings colonoscopy. Anesthesia Type mac Estimated Blood Loss Estimated blood loss (mL): minimal Specimens/Packing Specimens Removed none FRANCINE KAY MD April 15, 2023 16:01
[2023-04-15 16:20] VITALS: BP 167/97
--- NOTE | 2023-04-15 21:52 | OPERATIVE REPORT ---
DATE OF SERVICE: 04/15/2023 ATTENDING PRIMARY CARE PHYSICIAN: Dr. Rick Singletary. PREOPERATIVE DIAGNOSES: Rectal bleeding, anorectal pain. POSTOPERATIVE DIAGNOSES: Posterior anal fissure, mild patchy colitis of the descending colon and approximately at the hepatic flexure. No active bleeding, no neoplasms. PROCEDURE: Colonoscopy. SURGEON: Francine Kay MD ANESTHESIA: Monitored anesthesia care. ESTIMATED BLOOD LOSS: Minimal. FINDINGS: Posterior anal fissure, mild patchy colitis of the descending colon and approximately at the hepatic flexure. No active bleeding, no neoplasms. DISPOSITION: The patient tolerated the procedure well. INDICATIONS: The patient is a 42-year-old female referred over to us for rectal bleeding as well as anorectal pain upon having bowel movements. She states that this has been occurring for several months and at times she will have more formed stools; however, also have intermittent episodes of diarrhea. She also reports that at times she will notice red blood mixed with her stool. She does not report any family history of colon cancer. DESCRIPTION OF PROCEDURE: The patient was brought to the endoscopy suite and laid in the left lateral decubitus position. After adequate IV pain and sedative medications and monitored anesthesia care, a digital rectal examination was performed. Even under monitored anesthesia care anesthesia, just digital rectal examination did elicit pain and there was a posterior anal fissure identified. There was no active bleeding. There was also chronic stage II external and internal hemorrhoids. The endoscope was then intubated into the anus, rectum gently insufflated. The endoscope was then advanced through the valves of Rajan of the rectum with no polyps or any neoplasms identified. Throughout the descending colon, there were very small areas of patchy colitis, which was mild in appearance. The endoscope was then advanced through the transverse colon and at the hepatic flexure again there was some mild patchy colitis identified. The endoscope was then advanced through the ascending colon to the cecum, which were normal. There were no active bleeding sources identified as well as no polyps or any neoplasms. The endoscope was then slowly withdrawn while taking a second look and suctioning of residual air with no additional findings. The patient tolerated the procedure well. We will recommend the necessary lifestyle and dietary accommodation, which would first include high-fiber diet with addition of a fiber supplement, which should equal or exceed 25 grams daily to promote soft consistency stools on a daily basis. With the softer stools on a regular basis, this should allow the fissure to heal, epithelialize and allow resolution of the symptoms of the fissure. This would also help with any further propagation of hemorrhoids. We are unsure of the patchy mild areas of colitis and may be due to the colonic prep; however, we feel that this was so mild that this is not the cause of rectal bleeding. If she proceeds with a high-fiber diet and copious amounts of water and her stools are consistently soft on a regular basis and she continues to have anorectal pain upon defecation, she will be instructed to follow up with us and we will talk to her about the option of a fissurectomy. We will give her ample time to incorporate the high-fiber diet and have her follow up in approximately 6 weeks. Job ID: [id number] DocumentID: [id number] Dictated Date: 04/15/2023 15:55:29 Public Records Officer Date: 04/15/2023 21:50:00 Dictated By: FRANCINE KAY MD
== END 2023-04-15 16:50 | disposition home or self-care (01) ==
LOC: ENDO 13:16
PROVIDERS: ATTEND Surgery
DX: K52.9 Noninfective gastroenteritis and colitis, unspecified (principal); K60.2 Anal fissure, unspecified; K92.1 Melena; Z68.42 Body mass index [BMI] 45.0-49.9, adult

== ENCOUNTER → 2023-05-01 | Outpatient (CLI) | payer BC ==
--- NOTE | 2023-05-01 10:48 | Diagnostic Imaging Report ---
PROCEDURE: US Gallbladder. TECHNIQUE: Multiple Real-time grayscale images were obtained over the right upper quadrant in various projections. INDICATION: Right upper quadrant pain with nausea and vomiting. FINDINGS: The liver is normal in size. There is hepatopedal flow in the main portal vein. The common bile duct is not visualized. There is no cholelithiasis, gallbladder wall thickening, or pericholecystic fluid. The pancreas is not well seen due to bowel gas. The aorta is nonaneurysmal. The IVC is patent. The right kidney is normal. There is no ascites. IMPRESSION: Technically limited exam due to bowel gas and body habitus. The gallbladder is grossly unremarkable. Dictated by: Dictated on workstation # [id number]
== END ==
LOC: RAD 10:00
PROVIDERS: ATTEND Surgery
DX: R10.11 Right upper quadrant pain (principal); R11.2 Nausea with vomiting, unspecified
CPT/HCPCS: 76705

== ENCOUNTER → 2023-05-08 | Outpatient (CLI) | payer BC ==
[~2023-05-08] MED LIST changes: +CATHETER FLUSH 10 ML SYR IVP PRN; -LOSA100T57 PO; +LOSA100T58 PO
--- NOTE | 2023-05-08 12:19 | Diagnostic Imaging Report ---
INDICATION: Right upper quadrant abdominal pain. COMPARISON: None Tc-99m Choletec 5.34 mCi followed by 8 ounces of oral ensure FINDINGS: The upper abdomen was imaged for 60 minutes with the gamma camera. There is normal appearance of activity in the liver. There is activity in the common duct and gallbladder by 60 minutes. After 60 minutes, the patient received CCK. After 30 minutes, the gallbladder ejection fraction was calculated to be 89% which is normal. IMPRESSION: Normal hepatobiliary study with GBEF of 89%. Dictated by: Dictated on workstation # [id number]
== END ==
LOC: CARD 09:32
PROVIDERS: ATTEND Surgery
DX: R10.11 Right upper quadrant pain (principal)
CPT/HCPCS: 78227; A9537

== ENCOUNTER 2023-05-22 22:26 | Emergency (ER) | payer BC ==
[~2023-05-22] VITALS: Ht 165.1 cm; Wt 123.0 kg
[~2023-05-22 22:26] MED LIST changes: -CATHETER FLUSH 10 ML SYR IVP PRN
[2023-05-22 23:13] LABS: BASOPHILS % (AUTO) 0 % (0-10); EOSINOPHILS # (AUTO) 0.2 10^3/uL (0.0-0.3); EOSINOPHILS % (AUTO) 2 % (0-10); HEMATOCRIT 41 % (35-52); LYMPHOCYTES # (AUTO) 2.9 10^3/uL (1.0-4.0); LYMPHOCYTES % (AUTO) 24 % (12-44); MEAN CORPUSCULAR HEMOGLOBIN 28 pg (25-34); MEAN CORPUSCULAR HGB CONC 32 g/dL (32-36); MEAN CORPUSCULAR VOLUME 87 fL (80-99); MONOCYTES % (AUTO) 8 % (0-12); NEUTROPHILS # (AUTO) 8.2 10^3/uL (1.8-7.8); NEUTROPHILS % (AUTO) 66 % (42-75); PLATELET COUNT 351 10^3/uL (130-400); WHITE BLOOD COUNT 12.4 10^3/uL (4.3-11.0)
[2023-05-22 23:18] LABS: ALBUMIN 3.9 GM/DL (3.2-4.5); POTASSIUM 3.6 MMOL/L (3.6-5.0)
--- NOTE | 2023-05-22 23:18 | ED Cardiac General ---
History of Present Illness General Chief Complaint: Cardiac/General Problems Stated Complaint: HIGH BLOOD PRESSURE Nursing Triage Note: PT AMB TO RM 9 W C/O HTN, DIZZINESS, AND UNSTEADY GAIT SX 2100. PT A&OX4, DENIES PAIN. Source: patient Exam Limitations: no limitations History of Present Illness Date Seen by Provider: May 22, 2023 Time Seen by Provider: 23:10 Allergies and Home Medications Allergies Coded Allergies: Penicillins (Verified Allergy, Mild, RASH, 10/28/18) Sulfa (Sulfonamide Antibiotics) (Verified Allergy, Mild, RASH, 10/28/18) hyoscyamine (Verified Allergy, Mild, RASH, 10/28/18) Patient Home Medication List Home Medication List Reviewed: Yes Cetirizine HCl (Cetirizine HCl) 10 Mg Tablet, 10 MG PO DAILY, (Reported) Entered as Reported by: DEEP NUR on 10/28/18 1448 Dicyclomine HCl (Dicyclomine HCl) 10 Mg Capsule, 10 MG PO DAILY, (Reported) Entered as Reported by: KYLE FITZPATRICK on 04/08/23 142 Fluticasone Propionate (Flonase Allergy Relief) 9.9 Ml [place].susp, 1 SPRAY NS DAILY, (Reported) Entered as Reported by: DEEP NUR on 10/28/18 1448 Losartan/Hydrochlorothiazide (Losartan-Hctz 100-12.5 mg Tab) 100 Mg-12.5 Mg Tablet, 1 EACH PO DAILY, (Reported) Entered as Reported by: KYLE FITZPATRICK on 04/08/23 142 Metoprolol Succinate (Metoprolol Succinate) 50 Mg Tab.er.24h, 50 MG PO DAILY, (Reported) Entered as Reported by: KYLE FITZPATRICK on 04/08/23 142 Oxybutynin Chloride (Oxybutynin Chloride) 5 Mg Tablet, 5 MG PO DAILY, (Reported) Entered as Reported by: KYLE FITZPATRICK on 04/08/23 142 Tramadol HCl (Tramadol HCl) 50 Mg Tablet, 50 MG PO PRN PRN for PAIN, (Reported) Entered as Reported by: KYLE FITZPATRICK on 04/08/23 142 Past Ejzhvkd-Qwgodw-Rwuwvf Hx Patient Social History Tobacco Use?: No Use of E-Cig and/or Vaping dev: No Substance use?: No Alcohol Use?: No Immunizations Up To Date Tetanus Booster (TDap): Unknown First/Initial COVID19 Vaccinat: NO Second COVID19 Vaccination Adrian: NO Third COVID19 Vaccination Date: NO Seasonal Allergies Seasonal Allergies: Yes Past Medical History Surgeries: Yes (UTERINE ABLATION) Hysterectomy, Tubal Ligation Respiratory: No Cardiac: Yes Hypertension Neurological: No Reproductive Disorders: Yes (DUB, UTERINE MASS, CPP) Female Reproductive Disorders: Menstrual Problems, Ovarian Cyst [employer]OR [employer]BI[employer] History: Hysterectomy, Tubal Ligation Sexually Transmitted Disease: No HIV/AIDS: No Genitourinary: No Gastrointestinal: Yes Irritable Bowel Musculoskeletal: Yes Degenerate Disk Disease Endocrine: Yes (HX GOITER CHILD) HEENT: No Loss of Vision: Bilateral Hearing Impairment: Denies Cancer: No Psychosocial: Yes Anxiety, Bipolar, Depression Integumentary: No Blood Disorders: No Adverse Reaction/Blood Tranf: No (N/A) Physical Exam Vital Signs Vital Signs - First Documented 05/22/23 22:32 Temp 37.4 Pulse 101 Resp 18 B/P (MAP) 226/133 (164) Pulse Ox 100 O2 Delivery Room Air Capillary Refill : Less Than 3 Seconds Height, Weight, BMI Height: 5'5.00" Weight: 229lbs. 1.0oz. 103.870903mj; 45.00 BMI Method: Progress/Results/Core Measures Results/Orders Lab Results Laboratory Tests Test 05/22/23 22:36 Range/Units White Blood Count 12.4 H 4.3-11.0 10^3/uL Red Blood Count 4.68 3.80-5.11 10^6/uL Hemoglobin 13.0 11.5-16.0 g/dL Hematocrit 41 35-52 % Mean Corpuscular Volume 87 80-99 fL Mean Corpuscular Hemoglobin 28 25-34 pg Mean Corpuscular Hemoglobin Concent 32 32-36 g/dL Red Cell Distribution Width 13.8 10.0-14.5 % Platelet Count 351 130-400 10^3/uL Mean Platelet Volume 10.0 9.0-12.2 fL Immature Granulocyte % (Auto) 1 % Neutrophils (%) (Auto) 66 42-75 % Lymphocytes (%) (Auto) 24 12-44 % Monocytes (%) (Auto) 8 0-12 % Eosinophils (%) (Auto) 2 0-10 % Basophils (%) (Auto) 0 0-10 % Neutrophils # (Auto) 8.2 H 1.8-7.8 10^3/uL Lymphocytes # (Auto) 2.9 1.0-4.0 10^3/uL Monocytes # (Auto) 1.0 0.0-1.0 10^3/uL Eosinophils # (Auto) 0.2 0.0-0.3 10^3/uL Basophils # (Auto) 0.0 0.0-0.1 10^3/uL Immature Granulocyte # (Auto) 0.1 0.0-0.1 10^3/uL Sodium Level 142 135-145 MMOL/L Potassium Level 3.6 3.6-5.0 MMOL/L Chloride Level 111 H 98-107 MMOL/L Carbon Dioxide Level 23 21-32 MMOL/L Anion Gap 8 5-14 MMOL/L Blood Urea Nitrogen 10 7-18 MG/DL Creatinine 0.86 0.60-1.30 MG/DL Estimat Glomerular Filtration Rate 85 BUN/Creatinine Ratio 12 Glucose Level 105 70-105 MG/DL Calcium Level 8.7 8.5-10.1 MG/DL Corrected Calcium 8.8 8.5-10.1 MG/DL Magnesium Level 2.1 1.6-2.4 MG/DL Total Bilirubin 0.2 0.1-1.0 MG/DL Aspartate Amino Transf (AST/SGOT) 18 5-34 U/L Alanine Aminotransferase (ALT/SGPT) 16 0-55 U/L Alkaline Phosphatase 89 40-136 U/L B-Type Natriuretic Peptide 60.0 <100.0 PG/ML Total Protein 7.1 6.4-8.2 GM/DL Albumin 3.9 3.2-4.5 GM/DL TSH [place] Testing 0.57 0.35-4.94 UIU/ML My Orders Orders - CRISTINA ANDINO MD Cbc With Automated Diff (05/22/23 23:08) Comprehensive Metabolic Panel (05/22/23 23:08) Magnesium (05/22/23 23:08) Thyroid Analyzer (05/22/23 23:08) Ed Iv/Invasive Line Start (05/22/23 23:08) Ekg Tracing (05/22/23 23:08) Monitor-Rhythm Ecg Trace Only (05/22/23 23:08) Bnp [place] (05/22/23 23:18) Metoprolol Tartrate Injection (Lopressor (05/22/23 23:30) Hydrochlorothiazide Cap/Tablet (Hctz Cap (05/22/23 23:30) Medications Given in ED Current Medications Medications Dose Ordered Sig/Roderick Route Start Time Stop Time Status Last Admin Dose Admin Hydrochlorothiazide 12.5 mg ONCE ONCE PO 05/22/23 23:30 05/22/23 23:31 DC 05/22/23 23:34 12.5 MG Metoprolol Tartrate 5 mg ONCE ONCE IV 05/22/23 23:30 05/22/23 23:31 DC 05/22/23 23:34 5 MG Vital Signs/I&O 05/22/23 05/23/23 22:32 01:35 Temp 37.4 37.0 Pulse 101 78 Resp 18 16 B/P (MAP) 226/133 (164) 163/100 Pulse Ox 100 100 O2 Delivery Room Air Room Air Blood Pressure Mean: 164 Initial ECG Impression Date: May 22, 2023 Initial ECG Impression Time: 22:41 Initial ECG Rate: 87 Initial ECG Rhythm: Normal Sinus Initial ECG Intervals: Normal Initial ECG Impression: Normal Comment Normal sinus rhythm with no ST elevation or depression. No abnormal intervals or axis deviation. Departure Impression Primary Impression: Hypertensive urgency Additional Impression: Labile hypertension Disposition: 01 HOME, SELF-CARE Condition: Improved Departure-Patient Inst. Decision time for Depature: 01:30 Referrals: JARET CURIEL DO (PCP/Family) Primary Care Physician Patient Instructions: High Blood Pressure (DC) Add. Discharge Instructions: Double your metoprolol (Toprol-XL). You may do so by either taking 100 mg daily or taking 50 mg twice daily. Continue your losartan/HCTZ as previously prescribed. Follow-up with your primary care provider on Thursday to discuss further management of your high blood pressure. If you have any further episodes of extreme high blood pressure, please return to the emergency room. Avoid any consumption of items that could worsen high blood pressure including excessive caffeine, extra salt, decongestant medications, ADHD medications, workout supplements, diet pills, etc. All discharge instructions reviewed with patient and/or family. Voiced understanding. CRISTINA ANDINO MD May 22, 2023 23:18
[2023-05-22 23:19] LABS: CALCIUM 8.7 MG/DL (8.5-10.1)
[2023-05-22 23:20] LABS: TOTAL PROTEIN 7.1 GM/DL (6.4-8.2)
[2023-05-22 23:22] LABS: BILIRUBIN,TOTAL 0.2 MG/DL (0.1-1.0)
[2023-05-22 23:24] LABS: CREATININE SERUM 0.86 MG/DL (0.60-1.30)
[2023-05-22 23:27] LABS: MAGNESIUM 2.1 MG/DL (1.6-2.4)
[2023-05-22] MEDS ORDERED: HydroCHLOROthiazide CAP/TABLET 12.5 MG TAB PO ONE (23:30)
[2023-05-22] MEDS ORDERED: meTOprolol 5 MG/5 ML (LOPRESSOR) VIAL IV ONE (23:30)
[2023-05-22 23:47] LABS: TSH (THYROID ANALYZER) 0.57 UIU/ML (0.35-4.94)
[2023-05-23 01:35] VITALS: BP 163/100
== END 2023-05-23 01:38 | disposition home or self-care (01) ==
LOC: EDUNIT# 22:26 → ER 22:29
DX: I16.0 Hypertensive urgency (principal); I10 Essential (primary) hypertension; Z28.310 Unvaccinated for COVID-19
CPT/HCPCS: 36415; 80053; 83735; 83880; 84443; 85025; 93005; 93041

== ENCOUNTER → 2023-05-28 | Outpatient (CLI) | payer BC ==
--- NOTE | 2023-05-28 13:24 | Diagnostic Imaging Report ---
CLINICAL INDICATION: Rule out cauda equina syndrome. EXAMS: 1: X-ray of the lumbar spine, three views. 2: X-ray of the pelvis, two views. 3: X-ray of the sacrum and coccyx, two views. COMPARISON: None. FINDINGS: Lumbar spine shows no acute fracture or dislocation. There is mild loss of disk space height involving the L2-L3 level and L4-L5 level. There is umrx-dj-osmyarfn loss of disk space height at the L5-S1 level. There is chronic L5 spondylolysis with subtle grade 1 anterolisthesis of L5 on S1. There are degenerative spurs involving the lumbar spine and lower lumbar spine facet arthropathy. Sacroiliac joints show minimal sclerosis with no bony erosive or destructive changes. There is no fracture or dislocation of the sacrum or coccyx. There is no fracture of the hips. There is sclerosis and spurring of the symphysis pubis region. There is mildly hypertrophic spurring of the bilateral acetabular regions which may be seen with pincer-type femoroacetabular defects. LUMBAR SPINE, SACRUM, AND COCCYX X-RAYS IMPRESSION: 1: X-rays of the lumbar spine, sacrum and coccyx show no acute fracture. If there is concern for cauda equina syndrome, MRI of the lumbar spine is suggested. 2: There is chronic L5 spondylolysis with grade 1 anterolisthesis of L5 on S1. 3: There are prominent hypertrophic bony spurs involving the bilateral acetabular regions which may represent pincer-type femoroacetabular defects. Dictated by: Dictated on workstation # [id number]
== END ==
LOC: RAD 12:36
PROVIDERS: ATTEND Obstetrics & Gynecology
DX: M43.16 Spondylolisthesis, lumbar region (principal); M43.17 Spondylolisthesis, lumbosacral region; M77.9 Enthesopathy, unspecified; G83.4 Cauda equina syndrome
CPT/HCPCS: 72100; 72170; 72220

== ENCOUNTER → 2023-06-15 | Outpatient (CLI) | payer BC ==
--- NOTE | 2023-06-15 16:36 | Diagnostic Imaging Report ---
PROCEDURE: MRI lumbar spine. TECHNIQUE: Multiplanar, multisequence MRI of the lumbar spine was performed without contrast. INDICATION: Mixed urinary incontinence, chronic back pain. COMPARISON: No priors. FINDINGS: The lumbar statures are normal. Their alignment is anatomic. No acute or focal marrow signal pathology is found. No paravertebral mass, hemorrhage, or fluid collection. The left kidney is atrophic. The conus appears normal. There is normal dispersal of the nerves of the cauda equina. There is no paravertebral mass, hemorrhage, or fluid collection. Degenerative changes at the L5-S1 level, disc desiccation, bulge, and mild endplate osteophytes result in moderate left and mild right neuroforaminal stenosis. No significant impingement upon the lateral recesses. The canal at L5-S1 is patent. More minimal degenerative changes at the remaining levels result in no additional stenoses. There is no acute appearing abnormality. IMPRESSION: 1. Lumbosacral spondylosis results in left greater than right foraminal narrowing. Normal alignment. No acute bony pathology. There is no acute intrathecal or epidural abnormality. Normal conus and cauda equina. 2. Atrophic left kidney. Dictated by: Dictated on workstation # [id number]
== END ==
LOC: RAD 12:33
PROVIDERS: ATTEND Obstetrics & Gynecology
DX: N26.1 Atrophy of kidney (terminal) (principal); M47.817 Spondylosis without myelopathy or radiculopathy, lumbosacral region; M48.061 Spinal stenosis, lumbar region without neurogenic claudication; N39.46 Mixed incontinence
CPT/HCPCS: 72148

== ENCOUNTER → 2023-08-24 | Outpatient (CLI) | payer BC ==
[~2023-08-24] MED LIST changes: +DICY-11 PO; -DICY10CA12 PO
== END ==
LOC: CANPRECLI → CARD 11:07
PROVIDERS: ATTEND Internal Medicine Cardiovascular Disease
DX: R00.2 Palpitations (principal)
CPT/HCPCS: 93306